=== PATIENT | male | born 1945 | race Caucasian/White ===

== ENCOUNTER 2023-08-16 13:15 | Observation (INO) | payer MEDICARE ==
[2023-08-16 14:26] LABS: #Eosinphils 0.1 thou/uL (0.0-0.7); #Monocytes 0.6 thou/uL (0.11-0.59); #Neutrophils 4.5 thou/uL (1.40-6.50); %Basophils 0.4 % (0.0-1.0); %Eosinophils 1.3 % (0.0-10.0); %Lymphocytes 25.1 % (21.0-51.0); %Monocytes 8.2 % (0.0-10.0); %Neutrophils 64.9 % (42.0-75.0); Hematocrit 44.3 % (42.0-52.0); Hemoglobin 14.8 g/dL (14.0-18.0); Mean Corpuscular HGB CONC 33.4 g/dL (32.0-36.0); Mean Corpuscular Volume 92.7 fl (78.0-98.0); Mean Platelet Volume 9.4 fL (7.4-10.4); Platelet Count 217 10x3/uL (130-400); RBC Distribution Width 12.4 % (11.5-14.5); Red Blood Cell (RBC) Count 4.78 mill/uL (4.70-6.10); White Blood Cell (WBC) Count 6.9 10x3/uL (4.8-10.8)
[2023-08-16 14:48] LABS: ALT (SGPT) 28 U/L (8-55); AST (SGOT) 30 U/L (5-34); Albumin 4.4 g/dL (3.4-4.8); Alkaline Phosphatase 109 U/L (40-110); Anion Gap 13 mmol/L (10-20); BUN (Urea Nitrogen) 11 mg/dL (8.4-25.7); Bilirubin, Total 0.6 mg/dL (0.2-1.2); Calc. Creatinine Clearance 0 mL/min (70-130); Calcium 9.7 mg/dL (7.8-10.44); Carbon Dioxide 26 mmol/L (23-31); Chloride 104 mmol/L (98-107); Estimated GFR 61; Globulin 2.9 g/dL (2.4-3.5); Glucose 101 mg/dL (83-110); Potassium 4.5 mmol/L (3.5-5.1); Protein, Total 7.3 g/dL (5.8-8.1); Sodium 138 mmol/L (136-145)
[2023-08-16 14:53] LABS: Troponin I Less than 0.010 ng/mL (< 0.028)
[2023-08-16 15:42] LABS: Bacteria/HPF None Seen HPF (None Seen); Bilirubin Negative (Negative); Blood, Urine Negative (Negative); CAUTI Indications for Culture Pelvic or flank pain; Clarity Clear (Clear); Glucose, Urine (Dipstick) Normal (Negative); Ketone, Urine Negative (Negative); Leukocyte Negative Leu/uL (Negative); Nitrite Negative (Negative); Protein, Urine (Dipstick) Negative (Neg-Trace); RBC/HPF 0-3 HPF (0-3); Specific Gravity, Urine 1.006 (1.002-1.036); Squamous Epithelial None Seen HPF (0-3); Urobilinogen Normal mg/dL (Less than 2); WBC/HPF 0-3 HPF (0-3); pH, Urine 6.5 (5.0-9.0)
[2023-08-16 15:45] LABS: Urine Culture Reflex No No
[2023-08-16 15:49] LABS: Magnesium 2.3 mg/dL (1.6-2.6)
[2023-08-16] MEDS ORDERED: Atropine Sulfate 1 mg/10 ml Syringe ONE (16:10)
[2023-08-16] MEDS ORDERED: Acetaminophen 325 MG TAB PO PRN (18:38)
[2023-08-16 18:44] LABS: Troponin I 0.013 ng/mL (< 0.028)
[2023-08-16 21:01] VITALS: BMI 24.5
[2023-08-16] MEDS: Heparin 5,000 UNITS/ML VIAL SC SCH (21:25)
[2023-08-16 22:03] LABS: Troponin I 0.015 ng/mL (< 0.028)
[2023-08-16 22:34] LABS: Troponin I 0.011 ng/mL (< 0.028)
[2023-08-17 05:25] LABS: #Basophils 0.1 thou/uL (0.0-0.2); #Eosinphils 0.3 thou/uL (0.0-0.7); #Monocytes 0.6 thou/uL (0.11-0.59); #Neutrophils 3.3 thou/uL (1.40-6.50); %Basophils 0.8 % (0.0-1.0); %Eosinophils 5.2 % (0.0-10.0); %Lymphocytes 30.6 % (21.0-51.0); %Neutrophils 54.1 % (42.0-75.0); Hemoglobin 13.7 g/dL (14.0-18.0); Mean Corpuscular HGB CONC 32.6 g/dL (32.0-36.0); Mean Corpuscular Hemoglobin 30.7 pg (27.0-31.0); Mean Corpuscular Volume 94.2 fl (78.0-98.0); Mean Platelet Volume 9.6 fL (7.4-10.4); Platelet Count 187 10x3/uL (130-400); RBC Distribution Width 12.5 % (11.5-14.5); Red Blood Cell (RBC) Count 4.46 mill/uL (4.70-6.10); White Blood Cell (WBC) Count 6.1 10x3/uL (4.8-10.8)
[2023-08-17 05:57] LABS: ALT (SGPT) 19 U/L (8-55); AST (SGOT) 23 U/L (5-34); Albumin 3.5 g/dL (3.4-4.8); Alkaline Phosphatase 87 U/L (40-110); Anion Gap 11 mmol/L (10-20); BUN (Urea Nitrogen) 14 mg/dL (8.4-25.7); Bilirubin, Total 0.5 mg/dL (0.2-1.2); Calc. Creatinine Clearance 50 mL/min (70-130); Calcium 9.1 mg/dL (7.8-10.44); Carbon Dioxide 24 mmol/L (23-31); Chloride 107 mmol/L (98-107); Estimated GFR 59; Globulin 2.7 g/dL (2.4-3.5); Glucose 94 mg/dL (83-110); Potassium 4.3 mmol/L (3.5-5.1); Protein, Total 6.2 g/dL (5.8-8.1); Sodium 138 mmol/L (136-145)
[2023-08-17 06:14] LABS: Troponin I 0.015 ng/mL (< 0.028)
[2023-08-17] MEDS: Heparin 5,000 UNITS/ML VIAL SC SCH ×2 (08:57→17:48)
[2023-08-17] MEDS ORDERED: Lisinopril 2.5 MG TAB PO SCH (09:00)
[2023-08-17] MEDS ORDERED: Multivitamin W/ Minerals 1 TAB PO SCH (09:00)
[2023-08-17] MEDS ORDERED: Aspirin 81 mg Enteric Coated Tablet PO SCH (09:00)
[2023-08-17] MEDS ORDERED: Lisinopril 5 MG TAB PO SCH (09:00)
[2023-08-17 10:11] VITALS: TEMP 98
[2023-08-17 11:26] VITALS: BP 118/77
[2023-08-17] MEDS ORDERED: Methylcellulose 500 MG TAB PO SCH (12:00)
[2023-08-17] MEDS ORDERED: Atorvastatin Calcium 40 MG TAB PO SCH (21:00)
[2023-08-17] MEDS ORDERED: Magnesium Oxide 400 MG TAB PO SCH (21:00)
== END 2023-08-17 15:50 | disposition home or self-care (01) ==
LOC: ERS 13:15 → 2SW 16:45
PROVIDERS: ADMIT Internal Medicine Nephrology; ATTEND Internal Medicine
DX: I49.8 Other specified cardiac arrhythmias (principal); I25.10 Atherosclerotic heart disease of native coronary artery without angina pectoris; I10 Essential (primary) hypertension; E78.5 Hyperlipidemia, unspecified; Z79.82 Long term (current) use of aspirin; Z79.899 Other long term (current) drug therapy
CPT/HCPCS: 71045; 80053; 81001; 83735; 84484 ×3; 85025; 93005; 93306; 96372 ×2; 96374; 99285; G0378 ×3; J0461; 36415; 84443; J1644

== ENCOUNTER 2023-09-03 13:27 | Observation (INO) | payer MEDICARE ==
[2023-09-03 14:07] LABS: #Eosinphils 0.2 thou/uL (0.0-0.7); #Monocytes 0.5 thou/uL (0.11-0.59); #Neutrophils 2.4 thou/uL (1.40-6.50); %Basophils 0.6 % (0.0-1.0); %Eosinophils 4.5 % (0.0-10.0); %Lymphocytes 37.7 % (21.0-51.0); %Monocytes 9.9 % (0.0-10.0); %Neutrophils 47.1 % (42.0-75.0); Hematocrit 41.2 % (42.0-52.0); Hemoglobin 13.6 g/dL (14.0-18.0); Mean Corpuscular Hemoglobin 31.1 pg (27.0-31.0); Mean Corpuscular Volume 94.1 fl (78.0-98.0); Mean Platelet Volume 9.3 fL (7.4-10.4); Platelet Count 195 10x3/uL (130-400); RBC Distribution Width 12.3 % (11.5-14.5); Red Blood Cell (RBC) Count 4.38 mill/uL (4.70-6.10); White Blood Cell (WBC) Count 5.2 10x3/uL (4.8-10.8)
[2023-09-03 14:29] LABS: ALT (SGPT) 19 U/L (8-55); AST (SGOT) 21 U/L (5-34); Albumin 3.7 g/dL (3.4-4.8); Alkaline Phosphatase 94 U/L (40-110); Anion Gap 9 mmol/L (10-20); BUN (Urea Nitrogen) 17 mg/dL (8.4-25.7); Bilirubin, Total 0.3 mg/dL (0.2-1.2); Calc. Creatinine Clearance 0 mL/min (70-130); Carbon Dioxide 26 mmol/L (23-31); Chloride 107 mmol/L (98-107); Estimated GFR 67; Globulin 2.7 g/dL (2.4-3.5); Glucose 100 mg/dL (83-110); Potassium 4.4 mmol/L (3.5-5.1); Protein, Total 6.4 g/dL (5.8-8.1); Sodium 138 mmol/L (136-145)
[2023-09-03] MEDS ORDERED: HYDROcodone/Acetaminophen 5/325 mg Tablet PO PRN ×2 (17:22)
[2023-09-03] MEDS ORDERED: Ondansetron PF 4 MG/2 ML Vial IVP PRN (17:22)
[2023-09-03] MEDS ORDERED: Ondansetron ODT 4 MG TAB PO PRN (17:22)
[2023-09-03 20:26] VITALS: BMI 23.6
[2023-09-03] MEDS: Acetaminophen 325 MG TAB PO PRN (20:40)
[2023-09-03] MEDS ORDERED: Atorvastatin Calcium 40 MG TAB PO SCH (21:00)
[2023-09-03] MEDS ORDERED: Magnesium Oxide 400 MG TAB PO SCH (21:00)
[2023-09-04 05:30] LABS: #Eosinphils 0.4 thou/uL (0.0-0.7); #Monocytes 0.6 thou/uL (0.11-0.59); #Neutrophils 3.1 thou/uL (1.40-6.50); %Basophils 0.5 % (0.0-1.0); %Eosinophils 6.2 % (0.0-10.0); %Lymphocytes 30.6 % (21.0-51.0); %Monocytes 9.6 % (0.0-10.0); %Neutrophils 52.9 % (42.0-75.0); Hematocrit 40.9 % (42.0-52.0); Hemoglobin 13.8 g/dL (14.0-18.0); Mean Corpuscular HGB CONC 33.7 g/dL (32.0-36.0); Mean Corpuscular Hemoglobin 31.2 pg (27.0-31.0); Mean Corpuscular Volume 92.5 fl (78.0-98.0); Mean Platelet Volume 9.5 fL (7.4-10.4); Platelet Count 191 10x3/uL (130-400); RBC Distribution Width 12.2 % (11.5-14.5); Red Blood Cell (RBC) Count 4.42 mill/uL (4.70-6.10); White Blood Cell (WBC) Count 5.9 10x3/uL (4.8-10.8)
[2023-09-04 06:06] LABS: ALT (SGPT) 17 U/L (8-55); AST (SGOT) 20 U/L (5-34); Albumin 3.6 g/dL (3.4-4.8); Alkaline Phosphatase 85 U/L (40-110); Anion Gap 12 mmol/L (10-20); BUN (Urea Nitrogen) 14 mg/dL (8.4-25.7); Bilirubin, Total 0.6 mg/dL (0.2-1.2); Calc. Creatinine Clearance 60 mL/min (70-130); Carbon Dioxide 25 mmol/L (23-31); Chloride 108 mmol/L (98-107); Estimated GFR 75; Globulin 2.8 g/dL (2.4-3.5); Glucose 92 mg/dL (83-110); Potassium 4.5 mmol/L (3.5-5.1); Protein, Total 6.4 g/dL (5.8-8.1); Sodium 140 mmol/L (136-145)
[2023-09-04] MEDS ORDERED: Lisinopril 2.5 MG TAB PO SCH (09:00)
[2023-09-04] MEDS ORDERED: Multivit, Therapeutic 1 TAB PO SCH (09:00)
[2023-09-04] MEDS ORDERED: FLU VACC QS2023(65UP)/MF59C/PF 60 MCG/0.5 ML SYRINGE IM ONE (09:00)
[2023-09-04] MEDS: Acetaminophen 325 MG TAB PO PRN (10:27)
[2023-09-04 11:29] VITALS: BP 128/83; TEMP 97.6
[2023-09-04] MEDS ORDERED: Methylcellulose 500 MG TAB PO SCH (12:00)
[2023-09-04] MEDS ORDERED: Cephalexin 250 MG CAP PO SCH (21:00)
[2023-09-05] MEDS ORDERED: Terazosin HCl 1 MG CAP PO SCH (09:00)
== END 2023-09-04 11:42 | disposition home or self-care (01) ==
LOC: ERS 13:27 → SUATTDRO 13:27 → T4-B 16:36
PROVIDERS: ADMIT Family Medicine; ATTEND Family Medicine
DX: J93.9 Pneumothorax, unspecified (principal); I25.10 Atherosclerotic heart disease of native coronary artery without angina pectoris; I10 Essential (primary) hypertension; E78.5 Hyperlipidemia, unspecified; R00.1 Bradycardia, unspecified; K21.9 Gastro-esophageal reflux disease without esophagitis; Z79.82 Long term (current) use of aspirin; Z79.899 Other long term (current) drug therapy; Z95.0 Presence of cardiac pacemaker; Z88.5 Allergy status to narcotic agent
CPT/HCPCS: 36415; 71045; 80053; 85025; 93005; G0378

== ENCOUNTER 2023-10-29 16:01 | Emergency (ER) | payer MEDICARE ==
[~2023-10-29 16:01] MED LIST: Iopamidol-370 76% 500 ML MDV (1 ML CHARGE) ONE
[2023-10-29 16:25] LABS: #Eosinphils 0.1 thou/uL (0.0-0.7); #Monocytes 0.6 thou/uL (0.11-0.59); #Neutrophils 2.6 thou/uL (1.40-6.50); %Basophils 0.6 % (0.0-1.0); %Eosinophils 2.5 % (0.0-10.0); %Lymphocytes 36.6 % (21.0-51.0); %Monocytes 10.8 % (0.0-10.0); %Neutrophils 49.3 % (42.0-75.0); Hematocrit 41.7 % (42.0-52.0); Hemoglobin 14.1 g/dL (14.0-18.0); Mean Corpuscular HGB CONC 33.8 g/dL (32.0-36.0); Mean Corpuscular Hemoglobin 31.5 pg (27.0-31.0); Mean Corpuscular Volume 93.3 fl (78.0-98.0); Mean Platelet Volume 9.1 fL (7.4-10.4); Platelet Count 184 10x3/uL (130-400); RBC Distribution Width 12.5 % (11.5-14.5); Red Blood Cell (RBC) Count 4.47 mill/uL (4.70-6.10); White Blood Cell (WBC) Count 5.2 10x3/uL (4.8-10.8)
[2023-10-29 16:47] LABS: ALT (SGPT) 19 U/L (8-55); AST (SGOT) 22 U/L (5-34); Albumin 3.9 g/dL (3.4-4.8); Alkaline Phosphatase 104 U/L (40-110); Anion Gap 12 mmol/L (10-20); BUN (Urea Nitrogen) 12 mg/dL (8.4-25.7); Bilirubin, Total 0.6 mg/dL (0.2-1.2); Calc. Creatinine Clearance 0 mL/min (70-130); Carbon Dioxide 23 mmol/L (23-31); Chloride 108 mmol/L (98-107); Estimated GFR 63; Glucose 108 mg/dL (83-110); Potassium 3.8 mmol/L (3.5-5.1); Protein, Total 6.9 g/dL (5.8-8.1); Sodium 139 mmol/L (136-145)
== END 2023-10-29 18:09 | disposition home or self-care (01) ==
LOC: ERS 16:01
DX: R29.810 Facial weakness (principal); E78.00 Pure hypercholesterolemia, unspecified; I25.2 Old myocardial infarction; Z95.0 Presence of cardiac pacemaker; Z79.899 Other long term (current) drug therapy
CPT/HCPCS: 36416; 70450; 70496; 70498; 80053; 85025; 93005; Q9967